=== PATIENT | female | born 1960 | race Caucasian/White ===

== ENCOUNTER 2019-01-21 12:19 | Emergency (ER) | payer MEDICAID ==
[2019-01-21] MEDS ORDERED: Meclizine 12.5 MG Tab PO ONE (12:20)
[2019-01-21] MEDS ORDERED: Sodium Chloride 0.9% 1,000 ML IV ONE (12:47)
--- NOTE | 2019-01-21 13:01 | EDM.PDOC ---
ED HPI GENERAL MEDICAL PROBLEM - General Chief Complaint: General Stated Complaint: dizzy Time Seen by Provider: 01/21/19 12:19 Source of Information: Reports: Patient History Limitations: Reports: No Limitations - History of Present Illness INITIAL COMMENTS - FREE TEXT/NARRATIVE: This patient is a 58 year old female that presents to the ER. Patient is here with family. Patient reports that for the past 3 days she has been dizzy. Patient reports that movement makes her dizziness worse, but it is constant. Patient reports she feels like she is on a boat. Patient reports that she also has had a headache behind her eyes. Patient reports her headache has been present for 3 days. Patient reports the headache she has had chronically on and off for years. Patient reports that she feels disoriented and not herself. She reports she feels generally weak and does not feel well. Patient reports that she was scheduled for a sleep study but had to cancel due to snow. Patient reports that she is supposed to wear a cpap at night, but does not because of the mask. Patient reports she moved here to this area about 6 months ago from [place] and the elevation is a little higher here. She reports she thinks this is her issue. Onset Date: 01/18/19 Duration: Day(s): (3) Location: Reports: Head Quality: Reports: Ache Severity: Moderate Improves with: Reports: None Worsens with: Reports: Movement Associated Symptoms: Reports: Headaches, Malaise, Weakness (general). Denies: Confusion, Chest Pain, Cough, cough w sputum, Diaphoresis, Fever/Chills, Loss of Appetite, Nausea/Vomiting, Rash, Seizure, Shortness of Breath, Syncope Right Leg Pain Score (Numeric/FACES): 4 Headache Pain Score (Numeric/FACES): 3 - Related Data Allergies Allergy/AdvReac Type Severity Reaction Status Date / Time bupropion [From Wellbutrin] Allergy Hives Verified 01/21/19 12:37 Home Meds: Home Meds Cholecalciferol (Vitamin D3) [Vitamin D3] 2,000 units PO DAILY 01/21/19 [History ] Melatonin 1 mg PO BEDTIME PRN 01/21/19 [History] Rosuvastatin [Crestor] 10 mg PO DAILY 01/21/19 [History] ED ROS GENERAL - Review of Systems Review Of Systems: See Below Constitutional: Reports: Malaise, Weakness (generalized) HEENT: Reports: No Symptoms Respiratory: Reports: No Symptoms Cardiovascular: Reports: No Symptoms Endocrine: Reports: No Symptoms GI/Abdominal: Reports: No Symptoms : Reports: No Symptoms Musculoskeletal: Reports: No Symptoms Skin: Reports: No Symptoms Neurological: Reports: Dizziness, Headache Psychiatric: Reports: No Symptoms Hematologic/Lymphatic: Reports: No Symptoms Immunologic: Reports: No Symptoms ED EXAM, GENERAL - Physical Exam Exam: See Below Exam Limited By: No Limitations General Appearance: Alert, WD/WN, No Apparent Distress Eye Exam: Bilateral Eye: EOMI, PERRL Ears: Normal External Exam, Normal Canal, Hearing Grossly Normal, Normal TMs Ear Exam: Bilateral Ear: Auricle Normal, Canal Normal, TM normal Nose: Normal Inspection, Normal Mucosa, No Blood Throat/Mouth: Normal Inspection, Normal Lips, Normal Teeth, Normal Gums, Normal Oropharynx, Normal Voice, No Airway Compromise Head: Atraumatic, Normocephalic Neck: Normal Inspection, Supple, Non-Tender, Full Range of Motion Respiratory/Chest: No Respiratory Distress, Lungs Clear, Normal Breath Sounds, No Accessory Muscle Use Cardiovascular: Normal Peripheral Pulses, Regular Rate, Rhythm, No Edema, No Gallop, No JVD, No Murmur, No Rub Peripheral Pulses: 2+: Radial (L), Radial (R), Posterior Tibial (L), Posterior Tibial (R), Dorsalis Pedis (L), Dorsalis Pedis (R) GI/Abdominal: Normal Bowel Sounds, Soft, Non-Tender, No Organomegaly, No Distention, No Abnormal Bruit, No Mass, Pelvis Stable (Female) Exam: Deferred Rectal (Female) Exam: Deferred Back Exam: Normal Inspection, Full Range of Motion Extremities: Normal Inspection, Normal Range of Motion, Non-Tender, No Pedal Edema, Normal Capillary Refill Neurological: Alert, Oriented, CN II-XII Intact, Normal Cognition, No Motor/ Sensory Deficits, Abnormal Gait (due to dizziness. Unable to stand without assistance. ). No: Disoriented Psychiatric: Normal Affect, Normal Mood Skin Exam: Warm, Dry, Intact, Normal Color, No Rash Lymphatic: No Adenopathy EKG INTERPRETATION EKG Date: 01/21/19 Time: 12:30 Rate (Beats/Min): 70 QRS: RBBB Comparison: NA - No Prior EKG Course - Vital Signs Last Recorded V/S: Last Vital Signs Temp 98.4 F 01/21/19 12:26 Pulse 69 01/21/19 12:26 Resp 18 01/21/19 12:26 BP 138/88 01/21/19 12:26 Pulse Ox 98 01/21/19 12:26 Orthostatic Blood Pressure [ 146/95 Standing] Orthostatic Blood Pressure [ 145/85 Sitting] Orthostatic Blood Pressure [ 125/85 Supine] - Orders/Labs/Meds Orders: Active Orders 24 hr Category Date Time Status EKG Documentation Completion [RC] STAT Care 01/21/19 12:30 Active Orthostatic Vital Signs [RC] ASDIRECTED Care 01/21/19 12:47 Active Chest 1V Frontal [CR] Stat Exams 01/21/19 12:46 Taken Head wo Cont [CT] Stat Exams 01/21/19 12:45 Taken Labs: Laboratory Tests 01/21/19 01/21/19 01/21/19 Range/Units 12:46 12:46 13:00 WBC 6.9 (5.0-10.0) 10^3/uL RBC 4.46 (4.00-5.50) 10^6/uL Hgb 13.0 (12.0-16.0) g/dL Hct 39.9 (37.0-47.0) % MCV 89.5 (82.0-94.0) fL MCH 29.1 (27.0-32.0) pg MCHC 32.6 L (33.0-38.0) g/dL RDW Coeff of Conor 12.3 (11.0-15.0) % Plt Count 214 (150-400) 10^3/uL Neut % (Auto) 52.4 (35-85) % Lymph % (Auto) 37.2 (10-55) % [place] % (Auto) 6.2 (0-16) % Eos % (Auto) 3.9 (0-5) % Baso % (Auto) 0.3 (0-3) % Neut # (Auto) 3.61 (1.80-7.00) 10^3/uL Lymph # (Auto) 2.56 (1.00-4.80) 10^3/uL [place] # (Auto) 0.43 (0.00-0.80) 10^3/uL Eos # (Auto) 0.27 (0.00-0.45) 10^3/uL Baso # (Auto) 0.02 10^3/uL Sodium 143 (136-145) mEq/L Potassium 4.0 (3.5-5.0) mEq/L Chloride 104 (98-106) mEq/L Carbon Dioxide 31 (21-32) mmol/L BUN 15 (7-18) mg/dL Creatinine 0.7 (0.6-1.0) mg/dL Est Cr Clr Drug Dosing 74.23 mL/min Estimated GFR (MDRD) > 60 (>=60) mL/min Glucose 163 H D (75-99) mg/dL Calcium 8.6 (8.4-10.1) mg/dL Total Bilirubin 0.4 (0.0-1.0) mg/dL AST 16 (15-37) U/L ALT 26 (12-78) U/L Alkaline Phosphatase 56 (46-116) U/L Creatine Kinase 124 (21-215) U/L Troponin I < 0.017 (0.00-0.06) ng/mL NT-Pro-B Natriuret Pep 13 (0-1000) pg/mL Total Protein 6.9 (6.4-8.2) g/dL Albumin 3.8 (3.4-5.0) g/dL Urine Color Yellow (YELLOW) Urine Appearance Clear (CLEAR) Urine pH 6.5 (4.5-8.0) Ur Specific [place] <= 1.005 (1.003-1.020) Urine Protein Negative (NEGATIVE) mg/dL Urine Glucose (UA) Negative (NEGATIVE) mg/dL Urine Ketones Negative (NEGATIVE) mg/dL Urine Occult Blood Negative (NEGATIVE) Urine Nitrite Negative (NEGATIVE) Urine Bilirubin Negative (NEGATIVE) Urine Urobilinogen 0.2 (0.2-1.0) EU/dL Ur Leukocyte Esterase Negative (NEGATIVE) Urine RBC Not seen (0-5) /HPF Urine WBC Not seen (0-5) /HPF Ur Squamous Epith Cells Occasional H (NOT SEEN) /HPF Urine Bacteria Occasional H (NOT SEEN) /HPF Meds: Medications Discontinued Medications Generic Name Dose Route Start Last Admin Trade Name Freq PRN Reason Stop Dose Admin Sodium Chloride 1,000 mls @ 1,000 mls/hr 01/21/19 12:47 01/21/19 13:20 Normal Saline IV 01/21/19 13:46 1,000 mls/hr .BOLUS ONE Administration Meclizine HCl 1 packet 01/21/19 14:42 01/21/19 14:56 Take Home: Meclizine 12.5 Mg, 4 Tab Pack PO 01/21/19 14:43 1 packet ONETIME ONE Administration - Radiology Interpretation Free Text/Narrative:: CXR: No infiltrates, no cardiomegaly, no pulmonary edema. Head ct: No acute abnormality. CT Results Date: 01/21/19 CT Results Time: 14:00 - Re-Assessments/Exams Free Text/Narrative Re-Assessment/Exam: 01/21/19 14:45 Patient reports that she does feel much better in ER. She is opening eyes, moving head around, moving, and telling jokes. She denies chest pain, shortness of breath, nausea, or any other complaints. Will discharge. Educated when to return. Departure - Departure Time of Disposition: 14:39 Disposition: Home, Self-Care 01 Condition: Fair Clinical Impression: Vertigo, Dizziness - Discharge Information *PRESCRIPTION DRUG MONITORING PROGRAM REVIEWED*: Not Applicable *COPY OF PRESCRIPTION DRUG MONITORING REPORT IN PATIENT JENNIFER: Not Applicable Instructions: Vertigo, [id number], Near-Syncope, [id number] Referrals: Marlene Cosby NP [Primary Care Provider] - Forms: ED Department Discharge Additional Instructions: Followup with your primary care provider this week Return to the ER for worsening of dizziness, vomiting, chest pain, shortness of breath, passing out, or any other concerns Increase fluids Go home and rest Meclizine 12.5mg 1 pill every 12 hours as needed for dizziness #4 take home Sepsis Event Note - Evaluation Sepsis Screening Result: No Definite Risk - Focused Exam Vital Signs: Vital Signs Temp Pulse Resp BP Pulse Ox 01/21/19 12:26 98.4 F 69 18 138/88 98 Date Exam was Performed: 01/21/19 Time Exam was Performed: 20:59 - My Orders Last 24 Hours: My Active Orders 01/21/19 12:30 EKG Documentation Completion [RC] STAT 01/21/19 12:45 Head wo Cont [CT] Stat 01/21/19 12:46 Chest 1V Frontal [CR] Stat 01/21/19 12:47 Orthostatic Vital Signs [RC] ASDIRECTED - Assessment/Plan Last 24 Hours: My Active Orders 01/21/19 12:30 EKG Documentation Completion [RC] STAT 01/21/19 12:45 Head wo Cont [CT] Stat 01/21/19 12:46 Chest 1V Frontal [CR] Stat 01/21/19 12:47 Orthostatic Vital Signs [RC] ASDIRECTED Plan: PLEASE SEE RN NOTE FOR PFSH
[2019-01-21 13:29] LABS: CHLORIDE,CL 104 mEq/L (98-106); SODIUM,NA 143 mEq/L (136-145)
[2019-01-21] MEDS ORDERED: Take Home: Meclizine 12.5 MG Tab, 4 Tab Pack PO ONE (14:42)
== END 2019-01-21 14:59 | disposition home or self-care (01) ==
LOC: CC.ED 12:19
DX: R42 Dizziness and giddiness (principal); Z88.8 Allergy status to other drugs, medicaments and biological substances
CPT/HCPCS: 36415; 70450; 71045; 80053; 81001; 82550; 83880; 84484; 85025; 93005; 96360; 99285; A9270; J7030